=== PATIENT | female | born 1990 | race Caucasian/White ===

== ENCOUNTER 2018-12-27 16:46 | Emergency (ER) | payer MEDICAID, SELFPAY ==
[2018-12-27 16:48] VITALS: BP 129/91; PULSE 73; RESP 16; TEMP 36.4; O2SAT 97
--- NOTE | 2018-12-27 16:55 | W.ED.GENAD ---
Discharge Plan Disposition Patient Disposition: HOME Condition: Good Discharge Details Chief Complaint: RespSymp Clinical Impression: Pneumonia Primary Care Provider: Fatimah Slade ED Provider: Angelica Rodriguez Home Meds and New Rx's Prescriptions: New doxycycline hyclate 100 mg capsule 100 mg PO BID Qty: 10 RF: 0 Continued albuterol sulfate [ProAir HFA] 90 mcg/actuation HFA aerosol inhaler 2 puff Inhalation Q4H PRN PRN (Reason: bronchospasm) Qty: 1 RF: 12 levonorgestrel-ethinyl estrad [Aviane] 0.1-20 mg-mcg tablet 1 tab PO DAILY Qty: 84 RF: 3 fluticasone propionate 50 mcg/actuation spray,suspension 2 spry NS BID PRNRF: 0 Discharge Instructions Instructions: Doxycycline (By mouth), Pneumonia (ED) Additional Instructions: Encourage hydration. Tylenol and/or ibuprofen as needed for discomfort. Please continue with your albuterol inhaler as prescribed. Please take the doxycycline as prescribed for infection. If you develop new or worsening symptoms please seek care urgently once again. Otherwise, please follow-up with primary care for reevaluation at the end of the week if symptoms are persisting. Referrals: Fatimah Slade, [employer] [Primary Care Provider] - Discharge Data Discharge Date/Time-TO BE ENTERED AT DEPARTURE: 12/27/18 18:30 Medical Decision Making Patient is a 28-year-old female history of asthma presents with chief complaint of URI. Reports that 1.5 weeks ago she began having a mild cough is progressively worsened. Is also endorsing sore throat. The cough is been exacerbating her asthma. At this time, she is not sounding wheezy, good air movement but crackles are appreciated left lower lobe. She appears nontoxic with stable vital signs. Patient does endorse chills at home although afebrile here. Plan for chest x-ray for further evaluation and likely course of antibiotics. UPT negative. CXR reviewed by radiologist: FINDINGS: Lungs: There is increased retrosternal space which can be seen with hyperinflation however the diaphragms demonstrate normal curvature. Pleural space: Unremarkable. No pleural effusion. No pneumothorax. Heart/Mediastinum: Unremarkable. No cardiomegaly. Bones/joints: Unremarkable. IMPRESSION: No acute intrathoracic process seen to account for the patient's symptoms. Despite these findings on cxr, I remain concerned that the patient is developing pneumonia based on physical exam findings and history. Plan to treat with doxycycline. Encourage hydration. Advised Tylenol and ibuprofen as needed for discomfort. She is given strict return precautions. Advise follow-up with primary care if not improving within the week. This patient is responding well to albuterol inhaler, I do not feel that steroids are needed. Patient and I did discuss her/benefits of steroids and decided to hold off at this time. All his questions and concerns were addressed and he is in agreement this plan. HPI General Mode of arrival: ambulatory. Date/Time Provider Initiated Documentation: 12/27/18 16:54. Limitations to Documentation: no limitations. Information obtained by: patient and RN notes reviewed. HPI Narrative: Patient is a 28-year-old female with history of asthma, secondary cardiomyopathy, no headaches, presenting today with chief complaint of sore throat and cough. She reports that cough began approximately 1 1/2 weeks ago. Denies any objective fevers but states that she has had chills in recent days. States that the coughing can exacerbate her asthma symptoms, but exam when she has long coughing fits. That currently reporting shortness of breath. No recent travel. No recent antibiotics. Is also endorsing sore throat, but particularly worse when eating. Has been using her albuterol inhaler which she states has been helping with her wheezing. Denies any ear pain, no nasal congestion. Denies any GI upset. Related Data Home Medications Medication Instructions Recorded Confirmed albuterol sulfate 90 mcg/actuation 2 puff INHALATION Q4H PRN PRN #1 12/14/18 12/27/18 aerosol inhaler inhaler levonorgestrel-ethinyl estradiol 1 tab PO DAILY #84 tab 12/14/18 12/27/18 0.1 mg-20 mcg tablet doxycycline hyclate 100 mg PO BID #10 cap 12/27/18 fluticasone propionate 2 spry NS BID PRN 12/27/18 12/27/18 Previous Rx's Medication Instructions Recorded albuterol sulfate 90 mcg/actuation 2 puff INHALATION Q4H PRN PRN #1 12/14/18 aerosol inhaler inhaler levonorgestrel-ethinyl estradiol 1 tab PO DAILY #84 tab 11/06/19 0.1 mg-20 mcg tablet doxycycline hyclate 100 mg PO BID #10 cap 12/27/18 Allergies Allergy/AdvReac Type Severity Reaction Status Date / Time sweet potato Allergy Unknown Hives Verified 12/27/18 16:53 General Stated Complaint: RespSymp SANGITA: 4 Review of Systems Constitutional Constitutional: Reports as per HPI, Reports chills, Reports fatigue, Denies fever(s), Reports headache(s) (Reports her typical headache) and Reports poor appetite Eyes Eyes: Reports as per HPI, Denies eye discharge and Denies irritation ENT Ears, Nose, Mouth, and Throat: Reports as per HPI and Reports headache(s) (Reports her typical headache) Cardiovascular Cardiovascular: Reports as per HPI, Denies chest pain and Denies dyspnea Respiratory Respiratory: Reports as per HPI and Denies dyspnea Gastrointestinal Gastrointestinal: Reports as per HPI, Denies abdominal pain, Denies change in bowel habits, Denies nausea and Denies vomiting Integumentary/Breasts Skin/Breast: Reports as per HPI and Denies rash Neurologic Neurologic: Reports as per HPI and Reports headache(s) (Reports her typical headache) Endocrine Endocrine: Reports fatigue PFSH Medical History Eclampsia affecting first Family History Mother No problems noted. Father No problems noted. Social History Smoking/Tobacco Use Status: Former Tobacco Use Alcohol Intake: never Drug use: Never Substance use type: does not use Do you feel safe at home: Yes Do you feel safe in your relationship?: Yes Exam Const General: cooperative, healthy appearing, comfortable, no acute distress, well developed and well groomed Nutritional Appearance: average body habitus and well nourished Orientation: alert and awake [facility] [place] Head: normal to inspection, normocephalic and atraumatic Ears: hearing grossly normal bilaterally, external ears normal and TM's normal bilaterally General nose exam: external nose normal and nares normal Face and sinus: normal facial exam, sinuses nontender and face symmetric Mouth: oral mucosae normal, lip normal, tongue normal, oropharynx normal and moist mucous membranes Teeth and gingiva: dentition normal Throat: posterior oropharynx normal, tonsils normal and uvula midline Eyes General: appearance normal, both eyes and all related structures Neck Neck: normal visual inspection, full ROM, no lymphadenopathy and no meningeal signs Resp Effort & Inspection: normal respiratory effort, able to speak in complete sentences and no respiratory distress Auscultation: crackles on the left in the lower lung chandler, no rales, no rhonchi and no wheezes Cardio Rate: regular rate Rhythm: regular rhythm Heart Sounds: S1 normal and S2 normal Skin General skin exam: no rashes or lesions noted Neuro General: alert and awake Cognition: normal cognition Speech: speech normal Gait: normal gait Psych Appearance: grossly normal and well kempt Mental Status: mental status grossly normal Speech and Movement: speech and movement normal Course Vital Signs Vital signs: Vital Signs Temperature 36.4 C L 12/27/18 16:48 Pulse 73 12/27/18 16:48 Respiratory Rate 16 12/27/18 16:48 Blood Pressure 129/91 H 12/27/18 16:48 Pulse Oximetry 97 12/27/18 16:48 Temperature 36.4 C L 12/27/18 16:48 Temperature Source Skin 12/27/18 16:48 Pulse 73 12/27/18 16:48 Respiratory Rate 16 12/27/18 16:48 Respiratory Effort Non-Labored 12/27/18 16:53 Respiratory Depth Normal 12/27/18 16:53 Blood Pressure 129/91 H 12/27/18 16:48 Blood Pressure Position Sitting 12/27/18 16:48 Pulse Oximetry 97 12/27/18 16:48 Oxygen Delivery Method Room Air 12/27/18 16:48 Oxygen Flow Rate 0 12/27/18 16:48 Pain Level 8 12/27/18 16:48 Comment 12/27/18 16:48
--- NOTE | 2018-12-27 17:03 | DI.RAD_ITS ---
EXAM: XR CHEST 2V PA LATERAL CLINICAL HISTORY: cough, crackles LLL TECHNIQUE: 2D digital imaging was performed. COMPARISON: CHEST 2 VIEWS PA,LAT from 03/23/2009 FINDINGS: The cardiac and mediastinal contours have a normal appearance. The lungs are well inflated and clear . No infiltrate, effusion or pneumothorax is seen. No spine or rib fracture is identified. IMPRESSION: Negative chest x-ray.
--- NOTE | 2018-12-27 17:27 | DI.VRAD_ITS ---
PROCEDURE INFORMATION: Exam: XR Chest, 2 Views Exam date and time: 12/27/2018 5:19 PM Age: 28 years old Clinical history: Cough and other: Crackles TECHNIQUE: Imaging protocol: XR of the chest Views: 2 views. COMPARISON: No relevant prior studies available. FINDINGS: Lungs: There is increased retrosternal space which can be seen with hyperinflation however the diaphragms demonstrate normal curvature. Pleural space: Unremarkable. No pleural effusion. No pneumothorax. Heart/Mediastinum: Unremarkable. No cardiomegaly. Bones/joints: Unremarkable. IMPRESSION: No acute intrathoracic process seen to account for the patient's symptoms. Dictated and Authenticated by: Dawit Cruz MD. Ordering:JESSICA Dominguez MD
[2018-12-27] MEDS: Doxycycline Hyclate 100 MG CAP PO ×2 (18:27)
[2018-12-27 18:32] VITALS: BP 116/86; PULSE 68; RESP 18; TEMP 36.2; O2SAT 98
== END 2018-12-27 18:30 | disposition home or self-care (01) ==
PROVIDERS: Emergency Provider Physician Assistant; PCP Nurse Practitioner
DX: J18.9 Pneumonia, unspecified organism (principal)
CPT/HCPCS: 81025; 99283; 71046

== ENCOUNTER 2019-01-11 15:35 | Emergency (ER) | payer MEDICAID, SELFPAY ==
[2019-01-11 15:43] VITALS: BP 130/90; PULSE 92; RESP 16; TEMP 36.4; O2SAT 95
--- NOTE | 2019-01-11 15:55 | ED.GENADUL_ITS ---
Discharge Plan Disposition Patient Disposition: HOME Condition: Stable Discharge Details Chief Complaint: RespSymp Clinical Impression: Asthma exacerbation Primary Care Provider: Fatimah Slade ED Provider: Matt Montana Home Meds and New Rx's Prescriptions: New prednisone 20 mg tablet 60 mg PO DAILY 4 Days Qty: 12 RF: 0 doxycycline hyclate 100 mg tablet 100 mg PO BID Qty: 14 RF: 0 Continued albuterol sulfate [ProAir HFA] 90 mcg/actuation HFA aerosol inhaler 2 puff Inhalation Q4H PRN PRN (Reason: bronchospasm) Qty: 1 RF: 12 levonorgestrel-ethinyl estrad [Aviane] 0.1-20 mg-mcg tablet 1 tab PO DAILY Qty: 84 RF: 3 fluticasone propionate 50 mcg/actuation spray,suspension 2 spry NS BID PRNRF: 0 Discontinued doxycycline hyclate 100 mg capsule 100 mg PO BID Qty: 10 RF: 0 Discharge Instructions Instructions: Asthma (ED) Additional Instructions: follow up with your primary care provider if symptoms continue in a week if you have high fevers, difficulty breathing or feel more ill return to the emergency department Medical Decision Making 28 yo female with hx of asthma comes in with productive cough for 3 days. She was treated in December for CAP but only had 4 days of doxycyline. She felt better and then symptoms returned. Denies high fevers, recent travel, immobilization or surgeries. She has no leg swelling and no evidence of dvt on exam. She has wheezing in all lung chandler bilaterally but is speaking in full sentences. She appears well systemically so doubt sepsis but will xray to eval for pna and tx her asthma exacerbation. No evidence of dvt, hypoxia or tachycardia so doubt PE pt feels better after tx's and xray negative. Given the return of productive cough will tx as possible bronchitis and advised to f/u with pcp and return precautions given Differential Diagnosis Differential Diagnosis: uri, pna, asthma Imaging Data Radiologic Study: Attestation: I personally reviewed and interpreted this imaging study as follows: Imaging: X-Ray My impression: no acute findings HPI General Mode of arrival: ambulatory . Date/Time Provider Initiated Documentation: 01/11/19 15:43 . Limitations to Documentation: no limitations . Information obtained by: patient . History of Present Illness 28 year old F presents to the emergency department with the chief complaint of cough, described as moderate, Patient started experiencing this day(s) (3) and it has been intermittent. No relieving factors improve symptom(s), No exacerbating factors reported . Related Data Home Medications Medication Instructions Recorded Confirmed albuterol sulfate 90 mcg/actuation 2 puff INHALATION Q4H PRN PRN #1 12/14/18 01/11/19 aerosol inhaler inhaler levonorgestrel-ethinyl estradiol 1 tab PO DAILY #84 tab 12/14/18 01/11/19 0.1 mg-20 mcg tablet fluticasone propionate 2 spry NS BID PRN 12/27/18 01/11/19 doxycycline hyclate 100 mg PO BID #14 tab 01/11/19 prednisone 60 mg PO DAILY 4 Days #12 tab 01/11/19 Previous Rx's Medication Instructions Recorded albuterol sulfate 90 mcg/actuation 2 puff INHALATION Q4H PRN PRN #1 12/14/18 aerosol inhaler inhaler levonorgestrel-ethinyl estradiol 1 tab PO DAILY #84 tab 12/14/18 0.1 mg-20 mcg tablet doxycycline hyclate 100 mg PO BID #14 tab 01/11/19 prednisone 60 mg PO DAILY 4 Days #12 tab 01/11/19 Allergies Allergy/AdvReac Type Severity Reaction Status Date / Time sweet potato Allergy Unknown Hives Verified 01/11/19 15:46 General Stated Complaint: RespSymp SANGITA: 3 Review of Systems All systems reviewed & are unremarkable except as noted in HPI and below Constitutional Constitutional: Denies chills, Denies fever(s) and Denies weakness Gastrointestinal Gastrointestinal: Denies abdominal pain, Denies nausea and Denies vomiting Genitourinary Genitourinary: Denies dysuria Musculoskeletal Musculoskeletal: Denies joint swelling Integumentary/Breasts Skin/Breast: Denies rash Neurologic Neurologic: Denies weakness Endocrine Endocrine: Denies heat intolerance PFSH Family History Mother No problems noted. Father No problems noted. Social History Smoking/Tobacco Use Status: Former Tobacco Use Alcohol Intake: never Drug use: Never Substance use type: does not use Do you feel safe at home: Yes Do you feel safe in your relationship?: Yes Exam Const General: no acute distress Orientation: alert HENMT Head: normal to inspection Ears: external ears normal General nose exam: external nose normal Mouth: moist mucous membranes Eyes General: appearance normal, both eyes and all related structures Neck Neck: normal visual inspection Resp Effort & Inspection: normal respiratory effort and able to speak in complete sentences Cardio Rate: regular rate Skin General skin exam: no rashes or lesions noted Neuro General: alert and oriented x3 Extrem General: normal to inspection Psych Mental Status: mental status grossly normal Course Vital Signs Vital signs: Vital Signs Temperature 36.4 C L 01/11/19 15:43 Pulse 92 H 01/11/19 15:43 Respiratory Rate 16 01/11/19 15:43 Blood Pressure 130/90 01/11/19 15:43 Pulse Oximetry 95 01/11/19 15:43 Temperature 36.4 C L 01/11/19 15:43 Temperature Source Temporal Artery Scan 01/11/19 15:43 Pulse 92 H 01/11/19 15:43 Respiratory Rate 16 01/11/19 15:43 Respiratory Effort 01/11/19 15:49 Blood Pressure 130/90 01/11/19 15:43 Blood Pressure Position Sitting 01/11/19 15:43 Pulse Oximetry 95 01/11/19 15:43 Oxygen Delivery Method Room Air 01/11/19 15:43 Oxygen Flow Rate 0 01/11/19 15:43 Comment 01/11/19 15:43
--- NOTE | 2019-01-11 16:02 | DI.RAD_ITS ---
EXAM: XR CHEST 2V PA LATERAL INDICATION: cough. COMPARISON: XR CHEST 2V PA LATERAL from 12/27/2018 TECHNIQUE: 2D digital imaging was performed. FINDINGS: Cardiac and mediastinal contours have a normal appearance. The lungs are well inflated and clear. N o infiltrate or effusion is seen. There is no peribronchial thickening. IMPRESSION: Negative chest x-ray.
[2019-01-11] MEDS: Albuterol/Ipratropium 3 ML UPD VIAL UPD (16:15)
[2019-01-11] MEDS: predniSONE 20 MG TAB 60 MG PO (16:16)
--- NOTE | 2019-01-11 16:19 | DI.VRAD_ITS ---
PROCEDURE INFORMATION: Exam: XR Chest, 2 Views Exam date and time: 01/11/2019 4:09 PM Age: 28 years old Clinical history: Cough TECHNIQUE: Imaging protocol: XR of the chest Views: 2 views. COMPARISON: CR XR CHEST 2V PA LATERAL 12/27/2018 5:18 PM FINDINGS: Lungs: Unremarkable. No consolidation. Pleural space: Unremarkable. No pleural effusion. No pneumothorax. Heart/Mediastinum: Unremarkable. No cardiomegaly. Bones/joints: Unremarkable. IMPRESSION: No acute findings. Dictated and Authenticated by: Sanju Ken MD. Ordering:BRINA Gutierrez MD
[2019-01-11 16:41] VITALS: BP 120/86; PULSE 70; RESP 18; TEMP 36.9; O2SAT 96
== END 2019-01-11 16:46 | disposition home or self-care (01) ==
PROVIDERS: Emergency Provider Emergency Medicine; PCP Nurse Practitioner
DX: J45.901 Unspecified asthma with (acute) exacerbation (principal); Z87.891 Personal history of nicotine dependence
CPT/HCPCS: 99283; 71046; J7512; J7620

== ENCOUNTER 2019-01-31 09:57 | Emergency (ER) | payer MEDICAID, SELFPAY ==
[2019-01-31 10:00] VITALS: BP 125/86; PULSE 70; RESP 16; TEMP 36.5; O2SAT 99
--- NOTE | 2019-01-31 10:24 | W.ED.GENAD ---
Discharge Plan Disposition Patient Disposition: HOME Discharge Details Chief Complaint: Sorethroat Clinical Impression: Pharyngitis, Loose stools Primary Care Provider: Fatimah Slade ED Provider: Wilbur Peralta Home Meds and New Rx's Prescriptions: Continued albuterol sulfate [ProAir HFA] 90 mcg/actuation HFA aerosol inhaler 2 puff Inhalation Q4H PRN PRN (Reason: bronchospasm) Qty: 1 RF: 12 levonorgestrel-ethinyl estrad [Aviane] 0.1-20 mg-mcg tablet 1 tab PO DAILY Qty: 84 RF: 3 fluticasone propionate 50 mcg/actuation spray,suspension 2 spry NS BID PRNRF: 0 Discharge Instructions Instructions: Pharyngitis (ED), Acute Diarrhea (ED) Additional Instructions: Please take ibuprofen over the counter. Take 600mg by mouth every 6 hours as needed for pain. Please take acetaminophen (tylenol) - 650mg every 6 hours by mouth as needed for pain. Use salt water gargles a few times a day. You were given an order slip for outpatient C. difficile testing. Return with stool specimen to have this test performed as soon as possible be sure to follow-up with your primary care physician. Please contact your primary care physician to arrange follow-up. Return to the ER for any worsening or new concerning symptoms. Referrals: Fatimah Slade, BARI [Primary Care Provider] - Discharge Data Discharge Date/Time-TO BE ENTERED AT DEPARTURE: 01/31/19 10:42 Medical Decision Making 28-year-old female here with pharyngitis. Rapid strep test negative. Suspect viral pharyngitis. Supportive care recommended. Patient also with loose stool for the past 2 weeks after antibiotics for pneumonia. Advised yogurt and probiotic. Will check C. difficile testing. Patient unable to provide specimen here. I will give stool cup and order for outpatient testing. Usual customary discharge instructions were provided. HPI General Mode of arrival: ambulatory. Date/Time Provider Initiated Documentation: 01/31/19 10:05. Limitations to Documentation: no limitations. Information obtained by: patient. HPI Narrative: 28-year-old female here with sore throat. Patient has had sore throat for the past 3 days. No associated cough. No fever. No difficulty swallowing. Pain is worse with swallowing. 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 She has no associated rash. She did take some ibuprofen prior to arrival today. Related Data Home Medications Medication Instructions Recorded Confirmed albuterol sulfate 90 mcg/actuation 2 puff INHALATION Q4H PRN PRN #1 12/14/18 01/31/19 aerosol inhaler inhaler levonorgestrel-ethinyl estradiol 1 tab PO DAILY #84 tab 12/14/18 01/31/19 0.1 mg-20 mcg tablet fluticasone propionate 2 spry NS BID PRN 12/27/18 01/31/19 Previous Rx's Medication Instructions Recorded albuterol sulfate 90 mcg/actuation 2 puff INHALATION Q4H PRN PRN #1 12/14/18 aerosol inhaler inhaler levonorgestrel-ethinyl estradiol 1 tab PO DAILY #84 tab 12/14/18 0.1 mg-20 mcg tablet Allergies Allergy/AdvReac Type Severity Reaction Status Date / Time sweet potato Allergy Unknown Hives Verified 01/31/19 10:05 General Stated Complaint: Sorethroat SANGITA: 4 Review of Systems Constitutional Constitutional: Denies fever(s) ENT Ears, Nose, Mouth, and Throat: Reports as per HPI Respiratory Respiratory: Reports as per HPI Gastrointestinal Gastrointestinal: Denies abdominal pain and Reports loose stools (2 weeks) [facility] Medical History Eclampsia affecting first Family History Mother No problems noted. Father No problems noted. Social History Smoking/Tobacco Use Status: Former Tobacco Use Alcohol Intake: never Drug use: Never Substance use type: does not use Do you feel safe at home: Yes Do you feel safe in your relationship?: Yes Exam Const General: cooperative and no acute distress HENMT Mouth: moist mucous membranes Throat: uvula midline, no peritonsillar masses, posterior oropharynx abnormal erythema (Mild); no edema and no exudates and no uvular edema Eyes Conjunctivae: normal conjunctivae Sclera: normal sclerae Neck Neck: trachea midline and supple Lymphatic: lymphadenopathy (Bilateral ant cervical mild) Resp Auscultation: clear to auscultation bilaterally, no rales, no rhonchi and no wheezes Cardio Jugular venous pressure: no JVD Rate: regular rate and not tachycardic Rhythm: regular rhythm GI Palpation: soft, not firm, no guarding, no hepatosplenomegaly, no masses, not rigid and nontender Skin General skin exam: no rashes or lesions noted Course Vital Signs Vital signs: Vital Signs Temperature 36.5 C 01/31/19 10:00 Pulse 70 01/31/19 10:00 Respiratory Rate 16 01/31/19 10:00 Blood Pressure 125/86 01/31/19 10:00 Pulse Oximetry 99 01/31/19 10:00 Temperature 36.5 C 01/31/19 10:00 Temperature Source Skin 01/31/19 10:00 Pulse 70 01/31/19 10:00 Respiratory Rate 16 01/31/19 10:00 Respiratory Effort 01/31/19 10:02 Blood Pressure 125/86 01/31/19 10:00 Blood Pressure Position Sitting 01/31/19 10:00 Pulse Oximetry 99 01/31/19 10:00 Oxygen Delivery Method Room Air 01/31/19 10:00 Oxygen Flow Rate 0 01/31/19 10:00 Pain Level 9 01/31/19 10:00 Comment 01/31/19 10:00 Lab/Test Results Lab/Test Results: 01/31/19 10:02 Pharynx Streptococcus Screen (MARCOS) - Pending POC Strep Test-TISHA(Rapid) Start: 01/31/19 10:14 Freq: .Rapid Strep Test Status: Active Protocol: Document 01/31/19 10:15 SS (Rec: 01/31/19 10:15 SS [email or web address]) Strep test-TISHA(Rapid)-POC POC-Strep test-TISHA (Rapid) Negative POC-Strep test-TISHA (Rapid) Negative
[2019-01-31 10:43] VITALS: BP 124/71; PULSE 72; RESP 16; TEMP 36.6; O2SAT 99
== END 2019-01-31 10:42 | disposition home or self-care (01) ==
PROVIDERS: Emergency Provider Student in an Organized Health Care Education/Training Program; PCP Nurse Practitioner
DX: J02.8 Acute pharyngitis due to other specified organisms (principal); R19.7 Diarrhea, unspecified; Z79.2 Long term (current) use of antibiotics
CPT/HCPCS: 87880; 99282; 87081

== ENCOUNTER 2020-04-09 15:50 | Outpatient (CLI) | payer MEDICAID, SELFPAY ==
--- NOTE | 2020-04-09 15:45 | RT.EKG_ITS ---
APPROVED REPORT Exam: Resting ECG Patient Location: O HR:63 bpm ECG Measurements Heart Rate 63 AXIS SC 118 P 69 QRSd 83 QRS 58 QT 419 T 52 QTc 429 Conclusion Sinus rhythm...normal P axis, V-rate 60- 99
== END 2020-04-09 15:51 | disposition home or self-care (01) ==
LOC: DI.KIM 15:50
PROVIDERS: PCP Nurse Practitioner; Visit Provider Nurse Practitioner
DX: R07.1 Chest pain on breathing (principal)
CPT/HCPCS: 93010

== ENCOUNTER 2020-04-15 02:07 | Outpatient (CLI) | payer MEDICAID, SELFPAY ==
--- NOTE | 2020-04-15 07:00 | DI.CT_ITS ---
EXAM: CT CHEST PE CTA CLINICAL HISTORY: 4 mos sharp CHEST PAIN WITH inspiration,ON ORAL CONTRACEPTIVES,R07.1. TECHNIQUE: Imaging Protocol: Axial CT angiography was performed with multi-slice acquisition and mu lti-planar and/or 3D reconstructions. CONTRAST MATERIAL: Intravenous: Omnipaque 350 Contrast volume:100 ml COMPARISON: CT UPPER ABD WITH CONTRAST (P) from 03/05/2009 CR,XR XR CHEST 2V PA LATERAL from 01/11/2019 FINDINGS: Pulmonary Arteries: No evidence of filling defect to suggest pulmonary emboli. Tracheobronchial tree: Patent where visualized. Mediastinum and [place]: No dominant adenopathy or fluid collection. Pulmonary parenchyma: No consolidation or dominant measurable mass. No architectural distortion. Pleura: No effusion or pneumothorax. Heart: The heart is not dilated. No coronary artery calcifications are seen. Aorta: Thoracic aorta non-dilated. Upper abdomen: Unremarkable. Bones: Normal. Tubes, Catheters, and Lines: None IMPRESSION: Negative chest CT. No evidence of pulmonary embolism or other acute abnormality.. RADIATION DOSE DELIVERED: 305.1mGy.cm Total DLP DATA REPOSITORY: All CT scans at this facility are submitted to the National Radiology Data Registry (NRDR) Dose Index Registry (DIR) with the [employer] (ACR). RADIATION OPTIMIZATION: All CT scans at this facility use at least one of these dose optimization te chniques: automated exposure control; mA and/or kV adjustment per patient size (includes targeted exa ms where dose is matched to clinical indication); or iterative reconstruction.
[2020-04-15] MEDS: Omnipaque 350 MG/ML 100 ML BTL IJ (15:29)
[2020-04-15] MEDS: Normal Saline - Diluent 50 ML VIAL IV (15:30)
== END 2020-04-15 02:27 ==
PROVIDERS: PCP Nurse Practitioner; Visit Provider Nurse Practitioner
DX: R07.1 Chest pain on breathing (principal); Z79.3 Long term (current) use of hormonal contraceptives
CPT/HCPCS: 71275; J3490

== ENCOUNTER 2020-04-18 02:01 | Outpatient (CLI) | payer MEDICAID, SELFPAY ==
--- NOTE | 2020-04-18 08:45 | DI.US_ITS ---
EXAM: US BREAST RT COMPLETE CLINICAL HISTORY: dense cystic breasts TECHNIQUE: Ultrasound right breast performed using standard protocol. COMPARISON: No exams were available for comparison FINDINGS: All 4 quadrants of the right breast were evaluated sonographically including the retroareolar and axi llary regions. No solid or cystic masses, hypoechoic foci, areas of abnormal shadowing, or areas of skin thickening. There is an isoechoic area at the 6 o'clock position of the right breast 4 cm from t he nipple which appears represent fibroglandular tissue. IMPRESSION: 1. No right breast cystic or solid masses. 2. Findings were discussed with the patient on the date of the examination. DATA REPOSITORY:
--- NOTE | 2020-04-18 08:45 | DI.US_ITS ---
EXAM: US BREAST LT COMPLETE CLINICAL HISTORY: Breast pain, dense, cystic breasts,N60.19,N64.4 TECHNIQUE: Ultrasound right breast performed using standard protocol. COMPARISON: US US BREAST RT COMPLETE from 04/18/2020 FINDINGS: All 4 quadrants of the left breast were evaluated sonographically in addition to the retroareolar and axillary regions. No solid or cystic masses, hypoechoic foci, areas of abnormal shadowing, or areas of skin thickening. IMPRESSION: Unremarkable left breast ultrasound. Findings were discussed with the patient on the date of the examination. DATA REPOSITORY:
== END 2020-04-18 02:21 ==
PROVIDERS: PCP Nurse Practitioner; Visit Provider Nurse Practitioner
DX: N64.4 Mastodynia (principal); R92.2 Inconclusive mammogram; N60.11 Diffuse cystic mastopathy of right breast; N60.12 Diffuse cystic mastopathy of left breast
CPT/HCPCS: 76642

== ENCOUNTER 2020-06-25 16:24 | Outpatient (REF) | payer MEDICAID, SELFPAY ==
--- NOTE | 2020-06-25 15:00 | PAPFT_PTH ---
PATIENT: Preeti Grimaldo LOC: [facility] U#:[id number] AGE/SX: 30/F ROOM: RE06/25/[address]: Fatimah Slade APRN : 1990 BED: DIS: 06/25/2020 SPEC #: [id number] RECD: 06/25/20 18:20 STATUS: AZUL REQ #: [id number] JANESSA: 06/25/20 15:[address]: Fatimah Slade DEPT: [facility] Cytology RECD BY: Corine Bean Tissues: 1 - CX/ENDOCX FOR PAP SMEARS Procedures: PAP THIN PREP/UVM Screening HPV DNA PROBE Comments: [id number]
== END 2020-06-25 16:25 | disposition home or self-care (01) ==
LOC: LBN 16:24
PROVIDERS: PCP Nurse Practitioner; Visit Provider Nurse Practitioner
DX: Z12.4 Encounter for screening for malignant neoplasm of cervix (principal); Z11.51 Encounter for screening for human papillomavirus (HPV)
CPT/HCPCS: 88142; 87624

== ENCOUNTER 2020-10-26 14:52 | Emergency (ER) | payer MEDICAID, SELFPAY ==
[2020-10-26 15:00] VITALS: BP 157/108; PULSE 93; RESP 22; TEMP 36.5; O2SAT 99
--- NOTE | 2020-10-26 15:00 | DI.RAD_ITS ---
Exam(s) XR PORTABLE CHEST AP EXAM: XR PORTABLE CHEST AP CLINICAL HISTORY: PUI, SOB R/O PNA. TECHNIQUE: 2D digital imaging was performed. COMPARISON: CR,XR XR CHEST 2V PA LATERAL from 01/11/2019 FINDINGS: Heart size is normal. The mediastinum is not widened. Lungs are clear. No infiltrates nor obvious pleural effusions. IMPRESSION: No acute pulmonary findings on this single AP portable view of the chest. DATA REPOSITORY: RADIATION DOSE DELIVERED: All CT scans at this facility use at least one of these dose optimization techniques: automated exposure control; mA and/or kV adjustment per patient size (includes targeted e xams where dose is matched to clinical indication); or iterative reconstruction.
--- NOTE | 2020-10-26 15:08 | ED.GENADUL_ITS ---
Discharge Plan Disposition Patient Disposition: HOME Condition: Stable Discharge Details Clinical Impression: Exertional shortness of breath Primary Care Provider: Fatimah Slade ED Provider: Lucía Moreno Home Meds and New Rx's Prescriptions: No Action magnesium oxide 500 mg tablet 500 mg PO DAILY Qty: 90 RF: 2 budesonide-formoterol [Symbicort] 160-4.5 mcg/actuation HFA aerosol inhaler 2 puff inhalation BID Qty: 10.2 RF: 12 albuterol sulfate 2.5 mg /3 mL (0.083 %) solution for nebulization 2.5 mg inhalation Q4H PRN (Reason: shortness of breath or wheezing) Qty: 90 RF: 3 (DME) Compact Compressor Nebulizer Misc See Rx Instructions .ROUTE .MEDSUPPLY Qty: 1 RF: 0 albuterol sulfate [ProAir HFA] 90 mcg/actuation HFA aerosol inhaler 2 puff Inhalation Q4H PRN PRN (Reason: bronchospasm) Qty: 1 RF: 12 topiramate [Topamax] 25 mg tablet 25 mg PO DAILY Qty: 30 RF: 6 hydroxyzine HCl 25 mg tablet 25 mg PO QID PRN (Reason: itching) Qty: 30 RF: 2 fluticasone propionate 50 mcg/actuation spray,suspension 2 spray NS BID Qty: 15.8 RF: 6 montelukast [Singulair] 10 mg tablet 10 mg PO DAILY RF: 0 levonorgestrel-ethinyl estrad [Aviane] 0.1-20 mg-mcg tablet 1 tab PO DAILY Qty: 84 RF: 3 Discharge Instructions Instructions: Dyspnea (ED) Additional Instructions: At this time chest x-ray shows no evidence for pneumonia. Please continue using your inhalers as previously prescribed. Follow up with primary care provider in 3-5 days. Return to ED sooner if any worsening or concerns. Increase oral fluids. Please take Tylenol or Ibuprofen with food every 4-6 hours as needed for pain and swelling. Consider taking [id number] allergy medications for seasonal allergies. Stand Alone Forms: PENDING COVID-19 TESTING Referrals: Fatimah Slade, [employer] ENGINEER [Primary Care Provider] - 5 days Medical Decision Making 30-year-old female with a history of asthma presents to the ER with chief complaint of shortness of breath which has worsened over the last 2 days. Patient states she used her inhalers [id number]. She noticed it more today while helping her mother move. 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 She is vaccinated for Covid virus. She reports clamminess and chills, no reports of fever, nausea vomiting diarrhea or any other associated symptoms. She last used albuterol inhaler approximately 45 minutes prior to arrival. She also takes Symbicort daily. Upon initial examination lungs are clear bilaterally to location she is satting 99% on room air speaking in full sentences. At this time chest x-ray portable and Covid swab ordered. XR PORTABLE CHEST AP COMPARISON: CR,XR XR CHEST 2V PA LATERAL from 01/11/2019 FINDINGS: Heart size is normal. The mediastinum is not widened. Lungs are clear. No infiltrates nor obvious pleural effusions. IMPRESSION: No acute pulmonary findings on this single AP portable view of the chest. Discussed with patient x-ray results, verbalized understanding. Patient has remained hemodynamically stable with no significant increased work of breathing. Covid test at this time is pending. We'll give patient dexamethasone orally instructions to follow-up with PCP I will call her with the Covid results. Patient is in agreement with this plan. This text was generated using [employer] system, please disregard any oddities of phrase or misspellings. Covid swab negative. Patient called and informed of results, verbalized understanding. HPI General Mode of arrival: ambulatory . Date/Time Provider Initiated Documentation: 10/26/20 14:54 . Limitations to Documentation: no limitations . Information obtained by: patient . HPI Narrative: 30-year-old female with a history of asthma presents to the ER with chief complaint of shortness of breath which has worsened over the last 2 days. Patient states she used her inhalers [id number]. She noticed it more today while helping her mother move. 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 She is vaccinated for Covid virus. She reports clamminess and chills, no reports of fever, nausea vomiting diarrhea or any other associated symptoms. She last used albuterol inhaler approximately 45 minutes prior to arrival. She also takes Symbicort daily. Upon initial examination lungs are clear bilaterally to location she is satting 99% on room air speaking in full sentences. Related Data Home Medications Medication Instructions Recorded Confirmed fluticasone propionate 50 2 spray NS BID #15.8 ml 11/14/19 10/26/20 mcg/actuation nasal spray,suspension magnesium oxide 500 mg tablet 500 mg PO DAILY #90 tab 03/05/20 10/26/20 albuterol sulfate 90 mcg/actuation 2 puff INHALATION Q4H PRN PRN #1 04/09/20 10/26/20 aerosol inhaler inhaler albuterol sulfate 2.5 mg INHALATION Q4H PRN #90 ml 07/15/20 10/22/20 budesonide-formoterol HFA 160 2 puff INHALATION BID #10.2 g 07/15/20 10/26/20 mcg-4.5 mcg/actuation aerosol inhaler nebulizers #1 ea 07/15/20 10/22/20 montelukast 10 mg tablet 10 mg PO DAILY 09/04/20 10/26/20 hydroxyzine HCl 25 mg tablet 25 mg PO QID PRN #30 tab 10/15/20 10/26/20 topiramate 25 mg tablet 25 mg PO DAILY #30 tab 10/15/20 10/26/20 levonorgestrel-ethinyl estradiol 1 tab PO DAILY #84 tab 10/18/20 10/26/20 0.1 mg-20 mcg tablet Previous Rx's Medication Instructions Recorded fluticasone propionate 50 2 spray NS BID #15.8 ml 11/14/19 mcg/actuation nasal spray,suspension magnesium oxide 500 mg tablet 500 mg PO DAILY #90 tab 03/05/20 albuterol sulfate 90 mcg/actuation 2 puff INHALATION Q4H PRN PRN #1 04/09/20 aerosol inhaler inhaler albuterol sulfate 2.5 mg INHALATION Q4H PRN #90 ml 07/15/20 budesonide-formoterol HFA 160 2 puff INHALATION BID #10.2 g 07/15/20 mcg-4.5 mcg/actuation aerosol inhaler nebulizers #1 ea 07/15/20 hydroxyzine HCl 25 mg tablet 25 mg PO QID PRN #30 tab 10/15/20 topiramate 25 mg tablet 25 mg PO DAILY #30 tab 10/15/20 levonorgestrel-ethinyl estradiol 1 tab PO DAILY #84 tab 10/18/20 0.1 mg-20 mcg tablet Allergies Allergy/AdvReac Type Severity Reaction Status Date / Time sweet potato Allergy Unknown Hives Verified 10/22/20 09:26 General Stated Complaint: SOB SANGITA: 3 Review of Systems All systems reviewed & are unremarkable except as noted in HPI and below Cardiovascular Cardiovascular: Reports dyspnea and Reports dyspnea on exertion Respiratory Respiratory: Reports dyspnea and Reports dyspnea on exertion PFS Medical History History of pre-eclampsia Migraine headache without aura Oral contraceptive use Family History Father Diabetes Social History Smoking/Tobacco Use Status: Former Tobacco Use Smoking risk assessment performed?: Yes Alcohol Intake: current Alcohol Intake frequency: holidays/special occasions only Drug use: Never Substance use type: does not use Caregiver/Support person: No Foster care: No Household members: spouse and children Housing: apartment Number of Children: 4 Communication Needs: Corrective Lenses Do you need help understanding health information?: Rarely current occupation: client account representative Pets and animals: Yes Pets and animals: dog(s) Do you think of yourself as: straight/heterosexual Current gender identity: female What is your relationship status?: How often do you talk on the phone with friends or family?: three or more times per week How often do you get together with friends or relatives?: once per week How often do you attend evangelical or rastafarian services?: 1-3 times per year Do you belong to any clubs or organized social groups?: no Panel score (0-1 are the most socially isolated patients): 2 What type of physical activity do you participate in: walking Duration: 30-45 minutes/day Frequency: 1-2 times per week Osiris/Sabianist: Presybeterian Special osiris needs: No Seatbelt use: always Helmet use: Yes Drive intox or ride w/intox local hazmat driver: No Water heater temp set <120 deg: Yes Working smoke detector in home: Yes Do you feel safe at home: Yes Do you feel safe in your relationship?: Yes Victim of physical abuse: No Victim of emotional abuse: No Victim of sexual abuse: No Would you like helpful sources: No Exam Narrative Exam Narrative: Constitutional: Alert and oriented x3. Appears stated age. Normal body habitus. Head: Normocephalic, no trauma. Eyes: Pupils PERRLA, Red reflex noted, EOM's intact. Eyelids symmetrical without lesions, discharge, or swelling. ENT: Bilateral TM's WNL, External ear normal to inspection, no mastoid TTP, swelling, or erythema, Nasal turbinates WNL, no nasal discharge. Normal dentition, Posterior pharynx WNL, no exudate. Chest: RRR, Normal S1, S2, distal pulses intact. Resp: Lungs clear to auscultation bilaterally, no wheezes, rales, or rhonchi. Musculoskeletal: Normal gait, 5/5 strength to all four extremities. Skin: No suspicious rashes or lesions. Capillary refill less than 2 sec. Neurologic: Cranial nerves II-XII intact. Alert and oriented x 3. DTR's intact. Hematologic/Lymphatic: No ecchymosis, no lymphadenopathy. Course Vital Signs Vital signs: Vital Signs Temperature 36.5 C 10/26/20 15:00 Pulse 93 H 10/26/20 15:00 Respiratory Rate 22 10/26/20 15:00 Blood Pressure 157/108 H 10/26/20 15:00 Pulse Oximetry 99 10/26/20 15:00 Temperature 36.5 C 10/26/20 15:00 Temperature Source Temporal Artery Scan 10/26/20 15:00 Pulse 93 H 10/26/20 15:00 Respiratory Rate 22 10/26/20 15:00 Blood Pressure 157/108 H 10/26/20 15:00 Blood Pressure Position Sitting 10/26/20 15:00 Pulse Oximetry 99 10/26/20 15:00 Oxygen Delivery Method Room Air 10/26/20 15:00 Oxygen Flow Rate 0 10/26/20 15:00
[2020-10-26 15:13] LABS: Source Nasal/Nares
--- NOTE | 2020-10-26 15:47 | DI.VRAD_ITS ---
PROCEDURE INFORMATION: Exam: XR Chest Exam date and time: 10/26/2020 3:07 PM Age: 30 years old Clinical indication: Shortness of breath TECHNIQUE: Imaging protocol: XR of the chest. Views: 1 view. COMPARISON: CT CHEST PE CTA 09/10/2020 15:20 FINDINGS: Scan quality: Exam is technically satisfactory. Lungs: Lungs are clear with no infiltrate or nodule. Pleural spaces: Unremarkable. No pleural effusion. No pneumothorax. Heart/Mediastinum: Cardiomediastinal silhouette is normal. Vasculature: Pulmaonary vessels are non-engorged. Bones/joints: Unremarkable. IMPRESSION: No active cardiopulmonary disease. Dictated and Authenticated by: Froylan Butcher MD. Ordering:MINI Castrejon MD
[2020-10-26 16:19] LABS: COVID-19 PCR Negative (Negative)
[2020-10-26] MEDS: Dexamethasone 10 MG/ML VIAL PO (16:26)
[2020-10-26 16:31] VITALS: BP 124/79; PULSE 69; RESP 18; TEMP 36.6; O2SAT 99
== END 2020-10-26 16:38 | disposition home or self-care (01) ==
PROVIDERS: Emergency Provider Registered Nurse Emergency; PCP Nurse Practitioner
DX: R06.02 Shortness of breath (principal); Z20.822 Contact with and (suspected) exposure to COVID-19
CPT/HCPCS: 87635; 99283; 71045; J1100

== ENCOUNTER 2020-10-31 20:55 | Outpatient (REF) | payer MEDICAID, SELFPAY ==
[2020-11-02 12:05] LABS: COVID-19 RT-PCR UVMMC Result Negative (Negative)
== END 2020-10-31 20:56 | disposition home or self-care (01) ==
LOC: LBN 20:55
PROVIDERS: PCP Nurse Practitioner; Visit Provider Nurse Practitioner Family
DX: Z20.822 Contact with and (suspected) exposure to COVID-19 (principal)
CPT/HCPCS: U0003

== ENCOUNTER 2021-06-04 04:44 | Outpatient (CLI) | payer MEDICAID, SELFPAY ==
[2021-06-04 15:08] LABS: HCT 38.4 % (36.0-46.0); MCHC 33.9 % (32.0-36.0); MCV 88.7 fL (80-95); MPV 10.2 fL (8.0-11.0); Platelet Count 311 10^3/uL (130-400); RBC 4.33 10^6/uL (3.93-5.22); RDW 11.9 % (11.7-14.6); RDW-SD 38.2 fL; WBC 7.16 10^3/uL (4.4-10.8)
[2021-06-04 16:19] LABS: ALT 25 U/L (14-59); AST 11 U/L (15-37); Albumin 3.9 g/dL (3.4-5.0); Alkaline Phosphatase 69 U/L (46-116); Anion Gap 8.3 mmol/L (3-11); BUN 10 mg/dL (7-18); Bilirubin, Total 0.2 mg/dL (0.2-1.0); CO2 25.7 mmol/L (21.0-32.0); CREATININE 0.9 mg/dL (0.55-1.02); Calcium 8.5 mg/dL (8.5-10.1); Calculated LDL 102 mg/dL (<100); Chloride 106 mmol/L (98-107); Cholesterol 170 mg/dL (<200); Glucose 97 mg/dL (74-106); HDL Cholesterol 58 mg/dL (40-60); Sodium 140 mmol/L (136-145); TSH (W/Ref FT4) 2.44 uIU/mL (0.36-3.74); Total Protein 7.1 g/dL (6.4-8.2); Triglyceride 51 mg/dL (<150)
== END 2021-06-04 04:45 | disposition home or self-care (01) ==
LOC: LBO 04:44
PROVIDERS: PCP Nurse Practitioner; Visit Provider Family Medicine
DX: J45.909 Unspecified asthma, uncomplicated (principal); N92.6 Irregular menstruation, unspecified; R44.8 Other symptoms and signs involving general sensations and perceptions; Z13.220 Encounter for screening for lipoid disorders
CPT/HCPCS: 36415; 80053; 80061; 85027; 84443

== ENCOUNTER 2022-04-30 09:31 | Outpatient (CLI) | payer MEDICAID, SELFPAY ==
--- NOTE | 2022-04-30 08:30 | DI.RAD_ITS ---
Exam(s) XR WRIST RT COMPLETE EXAM: XR WRIST RT COMPLETE CLINICAL HISTORY: R wrist pain. TECHNIQUE: 2D digital imaging was performed of the right wrist. Three views were obtained. PA, lat eral and oblique views were obtained. COMPARISON: No exams were available for comparison FINDINGS: BONES: No acute fracture is present. No bony destructive lesion is seen. JOINTS: The carpal bones are normally aligned. SOFT TISSUE: Normal. IMPRESSION: Unremarkable radiographs of the right wrist. DATA REPOSITORY: RADIATION DOSE DELIVERED:
== END 2022-04-30 09:32 | disposition home or self-care (01) ==
LOC: DIORS 09:32
PROVIDERS: PCP Nurse Practitioner; Referring Provider Nurse Practitioner; Visit Provider Physician Assistant
DX: M25.531 Pain in right wrist (principal)
CPT/HCPCS: 73110